=== PATIENT | female | born 1980 | race Hispanic/Latino ===

== ENCOUNTER 2018-06-09 22:56 | Emergency (ER) | payer MEDICAID ==
[2018-06-10] MEDS ORDERED: Sodium Chloride 0.9% 1,000 ML IV STA (00:08)
--- NOTE | 2018-06-10 00:35 | ED PDOC ---
HPI: SOB/CHF/COPD Time Seen by Provider: 06/09/18 23:15 Chief Complaint (Nursing): Shortness Of Breath Chief Complaint (Provider): Shortness of Breath History Per: Patient History/Exam Limitations: no limitations Onset/Duration Of Symptoms: Days Current Symptoms Are (Timing): Still Present Additional History Per: Family (mother) Additional Complaint(s): 37 year old female presents to the ED with abstract manager for an evaluation of shortness of breath onset yesterday which has worsened. Patient states she had an episode of vomiting, trouble breathing and fever of 101. and got t ylenol at 1500. also w mild cough. Also reports of rash on the neck and arm after returning from camp which has partially resolved and is non priurititic.. Mother states patient is mentally challenged Denies diarrhea, abdominal pain, leg pain, recent travel or sick contact. PMD: Fnany Ahuja Past Medical History Reviewed: Historical Data, Nursing Documentation, Vital Signs Vital Signs: Last Vital Signs Temp 98.1 F 06/10/18 05:31 Pulse 83 06/10/18 05:31 Resp 18 06/10/18 05:31 BP 153/73 H 06/10/18 05:31 Pulse Ox 97 06/10/18 05:31 - Medical History Other PMH: mentally challenged - Surgical History Surgical History: No Surg Hx - Family History Family History: States: No Known Family Hx - Social History Current smoker - smoking cessation education provided: No Alcohol: None Drugs: Denies - Home Medications Home Medications: Ambulatory Orders Medication Instructions Recorded Albuterol 0.042% [Albuterol 0.042% 3 ml IH Q4H PRN #30 kori 06/10/18 Inhal Kori (1.25mg/3ml) UD] Amoxicillin/Clavulanate [Augmentin 1 tab PO BID #14 tab 06/10/18 875 MG-125 MG] - Allergies Allergies/Adverse Reactions: Allergies Allergy/AdvReac Type Severity Reaction Status Date / Time No Known Allergies Allergy Verified 06/09/18 23:14 Review of Systems ROS Statement: Except As Marked, All Systems Reviewed And Found Negative Constitutional: Positive for: Fever Respiratory: Positive for: Shortness of Breath Gastrointestinal: Positive for: Vomiting. Negative for: Abdominal Pain, Diarrhea Musculoskeletal: Negative for: Back Pain (no neck pain), Hand Pain, Leg Pain Skin: Positive for: Rash Neurological: Negative for: Weakness, Numbness, Incoordination, Change in Speech , Confusion, Seizures, Altered Mental Status, Headache, Dizziness Physical Exam - Reviewed Nursing Documentation Reviewed: Yes Vital Signs Reviewed: Yes - Physical Exam Appears: Positive for: Non-toxic, No Acute Distress Head Exam: Positive for: ATRAUMATIC, NORMAL INSPECTION, NORMOCEPHALIC Skin: Positive for: Rash (small petechiae on neck area ) Eye Exam: Positive for: EOMI, Normal appearance, PERRL ENT: Positive for: Normal ENT Inspection Neck: Positive for: Normal, Painless ROM, Supple. Negative for: Decreased ROM Cardiovascular/Chest: Positive for: Regular Rate, Rhythm. Negative for: Murmur Respiratory: Positive for: Normal Breath Sounds Gastrointestinal/Abdominal: Positive for: Normal Exam, Bowel Sounds, Soft. Negative for: Tenderness, Guarding, Rebound Back: Positive for: Normal Inspection Extremity: Positive for: Normal ROM. Negative for: Tenderness, Pedal Edema, Deformity Neurologic/Psych: Positive for: Alert, Oriented (x3) - Laboratory Results Result Diagrams: 06/10/18 00:20 06/10/18 00:20 - ECG O2 Sat by Pulse Oximetry: 95 (RA) Pulse Ox Interpretation: Normal Medical Decision Making Medical Decision Making: Time: 6 Initial Impression: shortness of breath, mild cough rule out pneumonia, PE (no risk factors or leg pain so low risk) Initial Plan: --CMP --Troponin I --CBC w/ Differential --D Dimer [COAG] --Chest Two Views (PA/LAT) [RAD] --Normal Saline 999mls/hr --Zofran Inj 4mg IV --POC Urine --Reevaluation Labs reviewed, D-Dimer and flu are negative. Her chest x-ray is normal. Time: 043 CT Head Without Intravenous Contrast FINDINGS: BRAIN: Unremarkable. No hemorrhage. No significant white matter disease. No edema. VENTRICLES: Unremarkable. No ventriculomegaly. BONES/JOINTS: Unremarkable. No acute fracture. SOFT TISSUES: Unremarkable. SINUSES: Left maxillary sinus opacification. MASTOID AIR CELLS: Unremarkable as visualized. No mastoid effusion. IMPRESSION: Left maxillary sinus opacification. pt reeval. feels better after albuterol neb. she looks comforatble, alert and awake, airway intact, no tachypnea and vitals stable, afebrile. Clinical Impression: sinusitis, mild/early bronchitis will give abx and albuterol for RX and outpt follow up in 1-2 days Upon provider evaluation patient is medically stable, and requires no further treatment in the ED at this time. Patient will be discharged with Albuterol 1.25mg/3ml for cough. Counseling was provided and all questions were answered regarding diagnosis and need for follow up with PMD. There is agreement to discharge plan. Return if symptoms persist or worsen. Scribe Attestation: Documented by Cely Moss, acting as a scribe for Milagros Robles MD Provider Scribe Attestation: All medical record entries made by the Scribe were at my direction and personally dictated by me. I have reviewed the chart and agree that the record accurately reflects my personal performance of the history, physical exam, medical decision making, and the department course for this patient. I have also personally directed, reviewed, and agree with the discharge instructions and disposition. Disposition - Clinical Impression Clinical Impression: Sinusitis - Patient ED Disposition Is Patient to be Admitted: No Counseled Patient/Family Regarding: Studies Performed, Diagnosis, Need For Followup - Disposition Disposition: Routine/Home Disposition Time: 05:00 Condition: IMPROVED Additional Instructions: follow up with your primary doctor in 1-2 days, return to the ED with any worsening or concerning symptoms SARA WAITE, thank you for letting us take care of you today. Your provider was Milagros Robles MD and you were treated for DIFFICULTY BREATHING. The emergency medical care you received today was directed at your acute symptoms. If you were prescribed any medication, please fill it and take as directed. It may take several days for your symptoms to resolve. Return to the Emergency Department if your symptoms worsen, do not improve, or if you have any other problems. Please contact your doctor or call one of the physicians/clinics you have been referred to that are listed on the Patient Visit Information form that is included in your discharge packet. Bring any paperwork you were given at discharge with you along with any medications you are taking to your follow up visit. Our treatment cannot replace ongoing medical care by a primary care provider outside of the emergency department. Thank you for allowing the [facility] team to be part of your care today. If you had an X-Ray or CT scan: A Radiologist will review the ED reading if any change in treatment is needed we will contact you. If you had a blood, urine, or wound culture: It will take several days for the results, if any change in treatment is needed we will contact you. If you had an STI test: It will take 48 hours for the results. Please call after 1 week if you have not heard back. Prescriptions: Albuterol 0.042% [Albuterol 0.042% Inhal Kroi (1.25mg/3ml) UD] 3 ml IH Q4H PRN # 30 kori PRN Reason: Cough Amoxicillin/Clavulanate [Augmentin 875 MG-125 MG] 1 tab PO BID #14 tab Instructions: Acute Bronchitis, Adult (DC), Sinusitis, Adult (DC) Forms: [employer] ([place]anian)
[2018-06-10 00:42] LABS: BASO % 0.3 % (0.0-2.0); EOS # 0.1 K/uL (0.0-0.7); EOS % 1.6 % (0.0-4.0); HEMOGLOBIN 12.8 g/dL (12.0-16.0); LYMPH # 0.4 K/uL (1.0-4.3); LYMPH % 4.5 % (20.0-40.0); MEAN CELL VOLUME 83.3 fl (81.0-99.0); MEAN CORPUSCULAR HEMOGLOBIN 27.6 pg (27.0-31.0); MEAN CORPUSCULAR HGB CONC 33.1 g/dL (33.0-37.0); MEAN PLATELET VOLUME 9.4 fl (7.2-11.7); MONO # 0.4 K/uL (0.0-0.8); MONO % 5.3 % (0.0-10.0); NEUT # 7.3 K/uL (1.8-7.0); NEUT % 88.3 % (50.0-75.0); NRBC % 0.1 % (0.0-0.0); PLATELET COUNT 132 K/uL (130-400); RBC 4.65 Mil/uL (3.80-5.20); RED CELL DISTRIBUTION WIDTH 14.2 % (11.5-14.5); WHITE BLOOD COUNT 8.2 K/uL (4.8-10.8)
[2018-06-10 00:47] LABS: ALB/GLOB RATIO 1.3 (1.0-2.1); ALBUMIN 4.1 g/dL (3.5-5.0); ALT/SGPT 35 U/L (9-52); AST/SGOT 33 U/L (14-36); BLOOD UREA NITROGEN 9 mg/dl (7-17); CALCIUM 9.2 mg/dL (8.4-10.2); GFR AFRICAN-AMERICAN > 60; GFR NON-AFRICAN AMERICAN > 60
[2018-06-10] MEDS ORDERED: Albuterol 0.083% Inhal Sol (2.5 mg/3 mL) UD INH ONE (02:12)
[2018-06-10] MEDS ORDERED: Albuterol 0.083% Inhal Sol (2.5 mg/3 mL) UD ONE (03:01)
[2018-06-10 03:07] VITALS: RESP 18
[2018-06-10 04:05] LABS: BANDS 2 % (0-2); LYMPHOCYTE 7 % (20-50); MONOCYTE 4 % (0-10); NEUTROPHIL 87 % (42-75); PLATELET ESTIMATE NORMAL (NORMAL); TOTAL CELLS COUNTED 100
[2018-06-10 04:06] LABS: HYPOCHROMIC SLIGHT
[2018-06-10] MEDS ORDERED: Albuterol-Ipratrop 3 mg / 0.5 (3 ml) UD INH STA (04:34)
[2018-06-10 05:33] VITALS: BP 153/73; PULSE 83; TEMP 98.1
--- NOTE | 2018-06-10 09:35 | RAD ---
Date of service: 06/10/2018 HISTORY: short of breath COMPARISON: No prior. TECHNIQUE: Chest PA and lateral FINDINGS: LUNGS: No active pulmonary disease. PLEURA: No significant pleural effusion identified. No pneumothorax apparent. CARDIOVASCULAR: Normal. OSSEOUS STRUCTURES: No significant abnormalities. VISUALIZED UPPER ABDOMEN: Normal. OTHER FINDINGS: None. IMPRESSION: No acute cardiopulmonary disease appreciated.
--- NOTE | 2018-06-10 11:46 | CT ---
Date of service: 06/10/2018 PROCEDURE: CT HEAD WITHOUT CONTRAST. HISTORY: vomiting COMPARISON: None available. TECHNIQUE: Axial computed tomography images were obtained through the head/brain without intravenous contrast. Radiation dose: Total exam DLP = 846.85 mGy-cm. This CT exam was performed using one or more of the following dose reduction techniques: Automated exposure control, adjustment of the mA and/or kV according to patient size, and/or use of iterative reconstruction technique. FINDINGS: HEMORRHAGE: No intracranial hemorrhage. BRAIN: No mass effect or edema. No atrophy or chronic microvascular ischemic changes. VENTRICLES: Unremarkable. No hydrocephalus. CALVARIUM: Unremarkable. PARANASAL SINUSES: Unremarkable as visualized. No significant inflammatory changes. MASTOID AIR CELLS: Unremarkable as visualized. No inflammatory changes. OTHER FINDINGS: None. IMPRESSION: No acute intracranial abnormalities. No significant findings to account for the clinical presentation. Concordant results (preliminary interpretation) provided by [email or web address]. Procedure Completed: 04:02 Preliminary ([facility]) Report: Dictated and Authenticated: 04:32 Final Interpretation: 11:45. June 10, 2018.
[2018-06-10 20:00] VITALS: O2SAT 95
== END 2018-06-10 05:31 | disposition home or self-care (01) ==
LOC: H.ER 22:56
DX: J32.9 Chronic sinusitis, unspecified (principal); J40 Bronchitis, not specified as acute or chronic
CPT/HCPCS: 70450; 71046; 80053; 84484; 85025; 85378; 87804; 94640; 96360; 99284; J2405; J7030